=== PATIENT | male | born 1960 | race Caucasian/White ===

== ENCOUNTER 2016-10-26 19:08 | Emergency (ER) | payer MEDICARE ==
--- NOTE | 2016-11-04 18:52 | ER ---
ADMIT: 10/26/2016 RM/LOC: ER [facility] MR#: [id number] [id number] ELY MARTINEZ [address] [place] [address] Emergency Room Report SEX: M AGE: 56 : 1960 DATE: 10/26/2016 ADDENDUM: This patient comes to the ER because at 11:00 a.m. today he started having chest pain. He also has a severe headache and some dizziness. He has had a little bit of cough, but he has had no vomiting or diarrhea, and he denies any fevers. He has never had pain like this in the past. He does have a history of having a pacemaker and states he has had CHF and atrial fib on and off. He is not on any blood thinners. He did have part of his lung removed from having an infection in his lung. His EKG showed a paced rhythm. Chest x- ray showed nothing acute. CTA of his chest had 3 small PEs. Cardiac enzymes were normal. I did consult with Dr. Villanueva concerning treatment of this patient. I then spoke with Dr. Kelly. We will start him on Xarelto. Radiologist also mentioned that he had bronchitis. I also started him on Zithromax. Per Dr. Kelly, he is to follow up with him on at 1 p.m., and the patient will keep that appointment. We also taught him how to use an inhaler with a spacer. DIAGNOSES: 1. Pulmonary embolism. 2. Bronchitis. 3. Tobacco use. Please see my T-sheet. DENA Berry / Ronnie Villanueva MD / raul JOB #: [id number] CC: Ronnie Villanueva MD, Attending Physician Jeromy Kelly MD, Family Physician
--- NOTE | 2016-11-20 14:43 | ER ---
ADMIT: 10/26/2016 RM/LOC: ER [facility] MR#: [id number] [address] ELY MARTINEZ [address] [place] [address] Emergency Room Report SEX: M AGE: 56 : 1960 DATE: 10/26/2016 ADDENDUM: The patient was given morphine in the ER 4 mg IV, which was ordered by me. Please see my T-sheet. DENA Berry / Ronnie Villanueva MD / raul JOB #: [id number] CC: Ronnie Villanueva MD, Attending Physician Jeromy Kelly MD, Family Physician
== END 2016-10-26 23:15 | disposition home or self-care (01) ==
LOC: ER 19:08
DX: I26.99 Other pulmonary embolism without acute cor pulmonale (principal); J40 Bronchitis, not specified as acute or chronic; F17.200 Nicotine dependence, unspecified, uncomplicated; I48.91 Unspecified atrial fibrillation; I50.9 Heart failure, unspecified; Z95.0 Presence of cardiac pacemaker

== ENCOUNTER → 2016-10-29 | Outpatient (CLI) | payer MEDICARE | END | disposition home or self-care (01) | LOC: RAD.S 13:51 | DX: M79.605 Pain in left leg (principal); M79.89 Other specified soft tissue disorders; I26.99 Other pulmonary embolism without acute cor pulmonale ==